=== PATIENT | male | born 1940 | race Caucasian/White ===

== ENCOUNTER 2018-02-15 17:53 | Emergency (ER) | payer OTHER ==
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
[2018-02-15 18:27] VITALS: BP 144/93; PULSE 88; TEMP 98.2; BMI 32.2
[2018-02-15] MEDS ORDERED: ACETAMINOPHEN 500 MG TABLET (FP) PO ONE ×2 (19:10→19:12)
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
[2018-02-15] MEDS ORDERED: ACETAMINOPHEN 325 MG TABLET (FP) ONE (19:13)
== END 2018-02-15 23:15 | disposition home or self-care (01) ==
LOC: JER 17:53
DX: S29.8XXA Other specified injuries of thorax, initial encounter (principal); M25.562 Pain in left knee; M25.512 Pain in left shoulder; M79.652 Pain in left thigh; W18.09XA Striking against other object with subsequent fall, initial encounter; Y93.89 Activity, other specified; Y92.89 Other specified places as the place of occurrence of the external cause; Y99.8 Other external cause status; I10 Essential (primary) hypertension; F10.10 Alcohol abuse, uncomplicated
CPT/HCPCS: 71046-TC-FY; 71250-TC; 73562-TC-LT-FY; 73590-TC-LT-FY; 99283-25